=== PATIENT | female | born 1955 | race Caucasian/White ===

== ENCOUNTER 2016-11-28 14:45 | Outpatient (CLI) | payer OTHER ==
--- NOTE | 2016-11-28 16:22 | DIAGNOSTIC IMAGING REPORT ---
PROCEDURE: MR LUMBAR SPINE W/O CONTRAST INDICATION: L5 LUMBOSACRAL RADICULOPATHY TECHNIQUE: Noncontrast T1, T2, and STIR sagittal images. T1 and T2 axial images. COMPARISON: None. FINDINGS: Mild dextroconvex curvature of the spine with multilevel disc desiccation. There is mild to moderate L3-4 and mild L4-5 disc space narrowing. Mild spur formation. L3-L4 Schmorl's nodes with reactive bone marrow edema. No suspicious osseous lesions. Conus is unremarkable. Paraspinal soft tissues are unremarkable. L1-2: Normal appearance. L2-3: Small disc bulge. No foraminal or spinal stenosis. L3-4: Mild circumferential broad-based disc bulge/spur complex with mild bilateral foraminal stenosis. No spinal stenosis. L4-5: Mild broad-based disc bulge/spur complex with mild to moderate facet arthropathy and thickening of the ligament flava. There is a left foraminal radial tear of the disc bulge. There is mild to moderate bilateral foraminal stenosis. No spinal stenosis. L5-S1: Mild broad-based disc bulge/spur complex with moderate right facet arthropathy. There is mild bilateral of foraminal stenosis. There is no spinal stenosis. IMPRESSION: 1. Mild degenerative changes with multilevel disc bulging 2. Mild bilateral L3-4, mild to moderate bilateral L4-5 and mild bilateral L5-S1 foraminal stenosis
== END 2016-11-28 23:00 ==
LOC: MRI SRH 14:45
DX: M51.26 Other intervertebral disc displacement, lumbar region (principal); M48.07 Spinal stenosis, lumbosacral region